=== PATIENT | male | born 1995 | race Caucasian/White ===

== ENCOUNTER 2017-08-08 14:51 | Emergency (ER) | payer BC ==
--- NOTE | 2017-08-08 15:25 | UC ---
Lower Extremity/Ankle HPI - HPI Summary HPI Summary: right ankle pain s/p injury last night while playing [email or web address] football. He jumped up and when he came down he had a sudden pain. No pain in the knee. No prior ankle surgery. - History of Current Complaint Stated Complaint: RIGHT ANKLE INJURY Time Seen by Provider: 08/08/17 15:17 Hx Obtained From: Patient Onset/Duration: Gradual Onset, Lasting Hours Severity Initially: Moderate Severity Currently: Severe Aggravating Factor(s): Standing, Ambulation Alleviating Factor(s): Rest, Elevation Able to Bear Weight: No - Risk Factors Gout Risk Factors: Negative - Allergies/Home Medications Allergies/Adverse Reactions: Allergies Allergy/AdvReac Type Severity Reaction Status Date / Time No Known Allergies Allergy Verified 08/08/17 15:20 Home Medications: Home Medications NK [No Home Medications Reported] 08/08/17 [History Confirmed 08/08/17] PMH/Surg Hx/FS Hx/Imm Hx Previously Healthy: Yes - Surgical History Surgical History: None - Family History Known Family History: Positive: Other - no related ankle disease. - Social History Occupation: Student Review of Systems Musculoskeletal: Arthralgia All Other Systems Reviewed And Are Negative: Yes Physical Exam Triage Information Reviewed: Yes Appearance: Well-Appearing, Pain Distress - he walks inon crutches. no obvious pain at rest. Vital Signs Reviewed: Yes Eyes: Positive: Conjunctiva Clear ENT: Positive: Normal ENT inspection Neck: Positive: Supple, Nontender, No Lymphadenopathy Respiratory: Positive: Chest non-tender, Lungs clear, Normal breath sounds, No respiratory distress, No accessory muscle use, Respiratory distress Cardiovascular: Positive: RRR, No Murmur, Pulses Normal, Brisk Capillary Refill Abdomen Description: Positive: Nontender, No Organomegaly, Soft Musculoskeletal Exam: Other - right ankle neg anterior drawer or talar tilt. No heel or achilles tenderness. no proximal fibula tenderness. There is tenderness of the medial malleolus. no 5th metatarsal tenderenss. Neurological: Positive: Alert, Muscle Tone Normal, Fatigued Psychological: Positive: Normal Response To Family, Age Appropriate Behavior Skin: Positive: rashes Lower Extremity Course/Dx - Differential Dx/Diagnosis Provider Diagnoses: ankle sprain.
--- NOTE | 2017-08-08 15:57 | RAD ---
Indication: RIGHT ankle pain. Soft tissue swelling and bruising medial aspect. Unable to bear weight. Injury playing football. Comparison: No relevant prior exams available on the [facility] for comparison. Technique: AP, mortise, and lateral views RIGHT ankle. Report: Normal articular alignment. No cortical disruption or suspicious trabecular irregularity to suggest fracture. Unremarkable soft tissue contours. IMPRESSION: Negative for fracture or malalignment.
== END 2017-08-08 16:09 | disposition home or self-care (01) ==
LOC: UCCORT 14:51
DX: S93.401A Sprain of unspecified ligament of right ankle, initial encounter (principal); X50.1XXA Overexertion from prolonged static or awkward postures, initial encounter; Y93.62 Activity, american flag or touch football; Y92.321 Football field as the place of occurrence of the external cause
CPT/HCPCS: 99201; G0463